=== PATIENT | female | born 1955 | race Caucasian/White ===

== ENCOUNTER 2019-02-19 11:08 | Emergency (ER) | payer OTHER ==
[~2019-02-19] VITALS: Ht 175.3 cm; Wt 76.7 kg
[~2019-02-19 11:08] MED LIST: ALBU90OI61 INH; BUPR100 PO; CYCL10 PO; Celexa10 MG PO; FISH OIL 1,0001 EAC1 PO; HYDACE5 PO; IBUP600 PO; LEVFLO500 PO; LEVSOD100 PO; MAGOXI400 PO; Melatonin5 M1 PO; OXYACE5T PO; PROM25 PO; RXCYCL10 PO; RXHYDACE PO; VITAMINS
[2019-02-19 12:32] LABS: BASOPHILS ABSOLUTE AUTO 0.05 K/mm3 (0.00-0.23); BASOPHILS PERCENT AUTO 0 % (0-2); EOSINOPHILS ABSOLUTE AUTO 0.04 K/mm3 (0.00-0.68); EOSINOPHILS PERCENT AUTO 0 % (0-6); Hematocrit 39.9 % (33.0-51.0); Hemoglobin 13.2 g/dL (11.5-16.0); IMMATURE GRAN ABSOLUTE AUTO 0.04 K/mm3 (0.00-0.10); IMMATURE GRAN PERCENT AUTO 0 % (0-1); LYMPHOCYTES ABSOLUTE AUTO 2.45 K/mm3 (0.84-5.20); LYMPHOCYTES PERCENT AUTO 17 % (21-46); MONOCYTES ABSOLUTE AUTO 0.92 K/mm3 (0.16-1.47); MONOCYTES PERCENT AUTO 7 % (4-13); Mean Corpuscular HGB Conc 33.1 g/dL (31.5-36.5); Mean Corpuscular Volume 100 fL (80-100); Mean Platelet Volume 9.6 fL (9.1-12.4); NEUTROPHILS ABSOLUTE AUTO 10.67 K/mm3 (1.96-9.15); NEUTROPHILS PERCENT AUTO 75 % (41-73); Platelet Count 238 K/mm3 (150-400); RDW Coefficient Variation 13.5 % (11.7-14.2); RDW Standard Deviation 49.1 fL (35.1-46.3); White Blood Cell Count 14.17 K/mm3 (4.00-11.30)
== END 2019-02-19 16:00 | disposition home or self-care (01) ==
LOC: ER 11:08
PROVIDERS: Emergency Medicine
DX: S31.41XA Laceration without foreign body of vagina and vulva, initial encounter (principal); Z87.891 Personal history of nicotine dependence; Z79.899 Other long term (current) drug therapy; X58.XXXA Exposure to other specified factors, initial encounter
CPT/HCPCS: 36415; 57180; 76830; 76856; 85025; 99284-25

== ENCOUNTER 2021-06-01 01:37 | Emergency (ER) | payer OTHER ==
[~2021-06-01] VITALS: Ht 175.3 cm; Wt 76.2 kg
== END 2021-06-01 03:21 | disposition left against medical advice (07) ==
LOC: ER 01:37
DX: Z53.21 Procedure and treatment not carried out due to patient leaving prior to being seen by health care provider (principal)

== ENCOUNTER 2022-03-20 11:52 | Emergency (ER) | payer OTHER ==
[~2022-03-20] VITALS: Ht 172.7 cm; Wt 73.0 kg
== END 2022-03-20 15:38 | disposition home or self-care (01) ==
LOC: ER 11:52
DX: M25.551 Pain in right hip (principal); W19.XXXA Unspecified fall, initial encounter; Z87.891 Personal history of nicotine dependence; Z79.890 Hormone replacement therapy; Z79.899 Other long term (current) drug therapy
CPT/HCPCS: 73502

== ENCOUNTER 2024-10-21 09:28 | Day surgery (SDC) | payer OTHER ==
[2024-10-21] VITALS (10 sets, daily range): BP systolic 107–154; BP diastolic 73–85
[~2024-10-21] VITALS: Ht 175.3 cm; Wt 72.0 kg
[~2024-10-21 09:28] MED LIST changes: +ATORVASTATIN CA10 MG PO; +Aspir 8181 MG PO; +FAMO20 PO; +LISI20 PO; +NITR.4SL
[2024-10-21] MEDS ORDERED: Isosorbide Mono30 MG PO (10:14)
[2024-10-21] MEDS ORDERED: Verapamil HCL 2.5 MG/ML 2ML Injection ONE (10:31)
[2024-10-21] MEDS ORDERED: Heparin Sodium 1000 Units/ML 10ML MDV ONE ×2 (10:32→11:25)
[2024-10-21] MEDS ORDERED: Nitroglycerin 2 MG/20 ML BTL ONE (10:32)
[2024-10-21] MEDS ORDERED: NS 250 ML IV ONE (10:32)
[2024-10-21] MEDS ORDERED: NS 1,000 ML IV ONE ×2 (10:32→10:33)
[2024-10-21] MEDS ORDERED: Midazolam HCl 1MG / ML 2ML Vial ONE (10:49)
[2024-10-21] MEDS ORDERED: FentaNYL Citrate 50 MCG/ML 2 ML Injection ONE (10:49)
[2024-10-21] MEDS ORDERED: HydrALAZINE HCl 20 MG / ML 1ML Vial ONE (11:08)
--- NOTE | 2024-10-21 12:15 | NUR ---
ASSUMED CARE OF PT POST PROCEDURE. PT ALERT AND ORIENTED, COOPERATIVE; DENIES CP POST PROCEDURE. MONITOR SR 60'S, B/P 148/85, SPO2 100 % RA. R RADIAL SITE NO SWELLING/HEMATOMA, TR BAND IN PLACE; RUE POSITIVE PLEUTH POST TR BAND PLACEMENT.
--- NOTE | 2024-10-21 13:15 | NUR ---
DR YUEN DISCUSSED RESULTS OF PROCEDURE WITH PT, WILL INCREASE LISINOPRIL TO 30 MG DAILY-DR YUEN'S OFFICE MAT TAKE CARE OF CALLING IN NEW PRESCRIPTION.
--- NOTE | 2024-10-21 14:18 | NUR ---
PT'S TR BAND FULLY DEFLATED, NO SWELLING/HEMATOMA. PT AMB TO BATHROOM, GAIT STEADY; SITE UNCHANGED AFTER ACTIVITY.
--- NOTE | 2024-10-21 14:50 | NUR ---
PT DRESSED SELF WITHOUT ISSUE, SITE UNCHANGED. TR BAND REMOVED, CLOTH DOT AND WRIST IMMOBILIZER PLACED; IV REMOVED-CANNULA INTACT.
--- NOTE | 2024-10-21 14:57 | NUR ---
PT AND DAUGHTER RECEIVED DISCHARGE INSTRUCTIONS, MED LIST AND AFTER CARE INSTRUCTIONS; VERBALIZED GOOD UNDERSTANDING. PT LEFT FACILITY VIA W/C, CONDITION STABLE.
== END 2024-10-21 14:57 | disposition home or self-care (01) ==
LOC: MHTC 09:28
DX: I25.118 Atherosclerotic heart disease of native coronary artery with other forms of angina pectoris (principal); I44.4 Left anterior fascicular block; I10 Essential (primary) hypertension; E78.5 Hyperlipidemia, unspecified; J45.909 Unspecified asthma, uncomplicated; E03.9 Hypothyroidism, unspecified; K21.9 Gastro-esophageal reflux disease without esophagitis; F17.210 Nicotine dependence, cigarettes, uncomplicated; Z79.890 Hormone replacement therapy; Z79.899 Other long term (current) drug therapy; Z98.84 Bariatric surgery status
CPT/HCPCS: 76937; 85347; 93454; 93571; 93572; 99152; 99153; C1769; C1887; C1894; J0360; J1644; J2250; J3010; J7030; J7050; Q9967